=== PATIENT | female | born 1955 | race Two or more races ===

== ENCOUNTER 2018-12-31 15:08 | Emergency (ER) | payer BC, OTHER ==
[~2018-12-31] VITALS: Ht 157.5 cm; Wt 53.5 kg
--- NOTE | 2018-12-31 15:15 | NUR ---
BIB [facility] ,NEAR SYNCOPE ON THE WAY TO THE RESTROOM WHILE AT A [employer]. DENIES KO, DENIES HEAD INJURY. C/O LIGHTHEADEDNESS. PT IS AOX4, AMB, VSS, RR EVEN AND UNLABORED. SKIN INTACT. NO ACUTE DISTRESS NOTED. DENIES SOB, N/V. FAMILY AT BEDSIDE.
[2018-12-31] MEDS ORDERED: ONDANSETRON HCL/PF 4 MG/2 ML VIAL ONE (15:19)
[2018-12-31] MEDS ORDERED: ONDANSETRON HCL/PF 4 MG/2 ML VIAL IVP ONE (15:30)
[2018-12-31] MEDS ORDERED: IV NS 0.9% 1,000 ML BAG IV ONE (15:30)
[2018-12-31 15:58] LABS: BASOPHILS % (AUTO) 0.5 % (0.0-2.0); HEMATOCRIT 43 % (33-45); LYMPHOCYTES % (AUTO) 17.8 % (20.0-44.0); MEAN CORPUSCULAR HGB CONC 32 g/dl (31.0-36.0); MEAN CORPUSCULAR VOLUME 87 fL (82-100); MONOCYTES # (AUTO) 0.6 /CMM (0.1-1.30); MONOCYTES % (AUTO) 9.6 % (2.0-12.0); NEUTROPHILS # (AUTO) 4.2 /CMM (1.8-8.9); NEUTROPHILS % (AUTO) 71.1 % (43.0-81.0); PLATELET COUNT (AUTO) 209 /CMM (150-450); RED BLOOD CELL COUNT(AUTO) 4.98 MIL/uL (4.0-5.2); WHITE BLOOD COUNT (AUTO) 5.9 K/uL (4.3-11.0)
--- NOTE | 2018-12-31 16:04 | NUR ---
PT TAKEN TO CT VIA [facility]
[2018-12-31 16:08] LABS: CALCIUM, SERUM 9.2 mg/dL (8.5-10.1); CARBON DIOXIDE 30 mmol/L (21-32); CHLORIDE 100 mmol/L (98-107); CREATININE 0.8 mg/dL (0.6-1.3); GLUCOSE 130 mg/dL (74-106); POTASSIUM 3.8 mmol/L (3.5-5.1); SODIUM SERUM 138 mmol/L (136-145); UREA NITROGEN, BLOOD 12 mg/dL (7-18)
--- NOTE | 2018-12-31 16:12 | NUR ---
PT REFUSED HEAD CT. NOTIFIED
--- NOTE | 2018-12-31 16:18 | NUR ---
CALLED FOR MEAL TRAY
[2018-12-31 16:23] LABS: ALANINE AMINOTRANSFERASE 17 U/L (12-78); ALKALINE PHOSPHATASE 104 U/L (46-116); ASPARTATE AMINOTRANSFERASE 27 U/L (15-37); BILIRUBIN,DIRECT 0.1 mg/dL (0.0-0.2); BILIRUBIN,TOTAL 0.3 mg/dL (0.2-1.0)
--- NOTE | 2018-12-31 16:50 | NUR ---
IV removed. Catheter intact and site benign. Pressure and 4x4 applied to site. No bleeding noted. Patient discharged to home in stable condition. Written and verbal after care instructions given. Patient verbalizes understanding of instruction.
[2018-12-31 18:06] VITALS: BP 115/79
== END 2018-12-31 16:42 | disposition home or self-care (01) ==
LOC: ER 15:13
DX: R55 Syncope and collapse (principal); Z90.49 Acquired absence of other specified parts of digestive tract; Z98.890 Other specified postprocedural states; Z88.2 Allergy status to sulfonamides
CPT/HCPCS: 36415; 71045-TC; 80048-TC; 80076-TC; 82962-TC; 84484-TC; 85025-TC; 85730-TC; J2405; J7030